=== PATIENT | male | born 1990 | race Caucasian/White ===

== ENCOUNTER 2022-01-18 02:57 | Emergency (ER) | payer MEDICAID, SELFPAY ==
[2022-01-18 03:05] VITALS: BP 106/67; PULSE 65; RESP 17; TEMP 36.5; O2SAT 97; BMI 28.1
[2022-01-18 04:07] LABS: Basophils Percent Auto 0.7 % (0-2); Eosinophils Percent Auto 0.9 % (0-4); Hematocrit 42.7 % (42.0-52.0); Hemoglobin 14.1 g/dl (14.0-18.0); Imm Gran Abs Auto 0.01 X10*3/uL (0.00-0.03); Imm Gran Pct Auto 0.2 % (0.0-0.4); Lymphocytes Absolute Auto 1.6 X10*3/uL (1.2-4.9); Lymphocytes Percent Auto 37.3 % (20-40); MANUAL DIFF FLAG NO; Mean Corpuscular Hemoglobin 31.1 pg (27.0-33.0); Mean Corpuscular Volume 94.1 fL (80.0-98.0); Mean Platelet Volume 8.2 fL (9.4-12.4); Monocytes Absolute Auto 0.4 X10*3/uL (0.1-1.2); Monocytes Percent Auto 8.2 % (2-11); Neutrophils Absolute Auto 2.3 x10*3/uL (2.0-8.3); Neutrophils Percent Auto 52.7 % (45-73); Platelet Count 275 X10*3/uL (160-400); Red Blood Count 4.54 X10*6/uL (4.60-5.80); Red Cell Distribution Width 15.5 % (11.0-16.0); White Blood Count 4.4 X10*3/uL (4.8-10.8)
[2022-01-18 04:10] LABS: Amphetamine Screen Urine Not Detected (Not Detect); Barbiturates, Urine Not Detected (Not Detect); Benzodiazepines Screen Urine POSITIVE (Not Detect); Cannabinoid Screen Urine POSITIVE (Not Detect); Cocaine Screen Urine Not Detected (Not Detect); Fentanyl, urine Not Detected (Not Detect); Opiate Screen Urine Not Detected (Not Detect); Phencyclidine Screen Urine Not Detected (Not Detect)
[2022-01-18 04:13] LABS: COVID-19 Test Negative (Negative)
[2022-01-18 04:26] LABS: Ethanol 337 mg/dL
[2022-01-18 04:29] LABS: Alanine Aminotransferase 42 U/L (0-40); Albumin Level 4.3 g/dL (3.5-5.0); Alkaline Phosphatase 55 U/L (39-117); Anion Gap 15 (12-20); Aspartate Amino Transferase 55 U/L (5-37); Bilirubin Direct 0.2 mg/dL (0.0-0.5); Bilirubin Total 0.4 mg/dL (0.0-1.0); Blood Urea Nitrogen 6 mg/dL (9-16); Calcium 8.8 mg/dL (8.4-10.2); Carbon Dioxide 26 mmol/L (22-29); Chloride 107 mmol/L (96-108); Creatinine Clr Calc Pharmacy 132.6; Estimated Glomerular Filt Rate > 60; Glucose Random 156 mg/dL (60-115); Potassium 3.2 mmol/L (3.3-5.1); Sodium 145 mmol/L (135-145)
--- NOTE | 2022-01-18 06:50 | PC.NURSE ---
Patient is in bed appears sleeping, no distress observed/reported, patient is not on any medication as reported by the patient, cryolite recovery operator will see the patient for detox help, behavior non concerning at this time, will continue to monitor
--- NOTE | 2022-01-18 07:16 | ED.ALCOHOL ---
HPI - Alcohol General Chief Complaint: ETOH/Substance Use Stated Complaint: ETOH SEEKING DETOX Time Seen by Provider: 01/18/22 07:16 Source: patient Mode of arrival: EMS Limitations: no limitations History of Present Illness HPI narrative: 31-year-old male who presents emergency department for evaluation alcohol use disorder and requesting alcohol detox. The patient was in a [employer] parking lot and he called the police and asked for help. Please contacted an ambulance the patient was then transported to the emergency department. The patient states that he has been binge drinking on alcohol. He states he drinks a 1-2 L bottle of Елена yuniel daily. States that he was drinking just prior to coming to the emergency department. He denied using any drugs. States that he has not been ill in any way except for his alcohol use. He denied fever, chills, rhinorrhea, sore throat, cough, chest pain, shortness of breath, abdominal pain, nausea, vomiting, diarrhea. Related Data Allergies Allergy/AdvReac Type Severity Reaction Status Date / Time Seasonal Allergies Allergy Runny Nose Verified 01/18/22 03:13 Review of Systems Review of Systems: Yes all other systems are reviewed and are negative [facility] Past Medical History [facility] Narrative: Past medical history: Depression, anxiety, PTSD. Past surgical history: None. Social history: Smokes 1/2 pack of cigarettes per day times 17 years. He drinks alcohol daily as discussed in the HPI he drinks 1-2 L of Елена yuniel per day. He denies drug use. Physical Exam ED Vital Signs: Vital Signs - 24 hr 01/18/22 03:05 01/18/22 07:22 Temperature 97.7 F Pulse Rate 65 74 Respiratory Rate 17 16 Blood Pressure 106/67 110/68 Pulse Oximetry 97 99 BMI result Body Mass Index 28.1 Const Other: Awake, alert, male patient, pleasant, cooperative, does not appear to be in distress HENMT Head: Yes normal to inspection, Yes normocephalic and Yes atraumatic Ears: external ears normal General nose exam: Normal external nose present Face and sinus: Yes normal facial exam Mouth: Normal oral and palatal mucosa present Throat: Yes posterior oropharynx normal Eyes General: appearance normal, both eyes and all related structures Pupils: Equal, round and reactive pupils present Neck Neck: Yes normal visual inspection, Yes no lymphadenopathy, Yes trachea midline and Yes supple Chest Chest palpation & inspection: normal inspection of the chest and normal palpation of entire chest wall Resp Effort & Inspection: normal respiratory effort and able to speak in complete sentences Auscultation: clear to auscultation bilaterally Cardio Rate: regular rate Rhythm: regular rhythm Heart sounds: S1 normal heart sound present, S2 normal heart sound present and no murmurs GI Inspection: Yes normal to inspection Palpation (GI): Soft to palpation, nontender and no guarding Auscultation: normal bowel sounds General: Yes no CVA tenderness Back/Spine/Pelvis Back: no CVA tenderness Skin General skin exam: no rashes or lesions noted Neuro Cranial nerves: Yes CN's II-XII intact bilaterally and Yes Equal, round and reactive pupils present Cognition (Neuro): normal cognition Motor exam (neuro): 5/5 motor strength present throughout Extrem General: Yes normal to inspection Psych Appearance: grossly normal Speech and movement: Normal speech and movement present Affect: normal affect Attitude: cooperative Thought process: Normal thought process present Thought content: Normal thought content present, suicidality and no homicidality Course Course Course Narrative: 31-year-old male with a history of alcohol use disorder who drinks 1-2 L of Елена yuniel daily who presents emergency department for evaluation for alcohol detox. The patient has not been ill in any way prior to coming to the emergency department. He denies being suicidal or homicidal. Vital signs were normal. Physical examination was unremarkable. Laboratory evaluation: Low WBC 4400, low potassium 3.2, low glucose 156, elevated AST and ALT 55 and 42. Elevated alcohol 337. Urine tox screen positive for benzodiazepines and marijuana. COVID-19 was negative. The patient's labs are consistent with acute alcohol intoxication and alcohol use disorder. The patient is medically cleared for evaluation for detox. A consult will be placed to the care team and to our student success coach to see how he can help this patient. The patient is voluntary, he is not suicidal or homicidal and he can leave at any time. 0723: Physician observation started at 0723. Patient placed in physician observation because the patient needed more time to metabolize his elevated alcohol level on become sober and to be evaluated by care team and student success coach for detox placement. At the time observation was started the patient's vitals were stable, patient is alert and oriented, cooperative Neuro: nonfocal, CV RRR, Lungs clear. MDM - Alcohol Lab Data Result diagrams: 04/05/22 04:02 01/18/22 04:02 Labs: Lab Results 01/18/22 01/18/22 01/18/22 Range/Units 03:41 03:41 04:02 WBC 4.4 L (4.8-10.8) X10*3/uL RBC 4.54 L (4.60-5.80) X10*6/uL Hgb 14.1 (14.0-18.0) g/dl Hct 42.7 (42.0-52.0) % MCV 94.1 (80.0-98.0) fL MCH 31.1 (27.0-33.0) pg MCHC 33.0 (31.0-36.0) g/dl RDW 15.5 (11.0-16.0) % Plt Count 275 (160-400) X10*3/uL MPV 8.2 L (9.4-12.4) fL Immature Gran % (Auto) 0.2 (0.0-0.4) % Neut % (Auto) 52.7 (45-73) % Lymph % (Auto) 37.3 (20-40) % Wetzel % (Auto) 8.2 (2-11) % Eos % (Auto) 0.9 (0-4) % Baso % (Auto) 0.7 (0-2) % Lymph # (Auto) 1.6 (1.2-4.9) X10*3/uL Wetzel # (Auto) 0.4 (0.1-1.2) X10*3/uL Eos # (Auto) 0.0 (0.0-0.4) X10*3/uL Baso # (Auto) 0.0 (0.0-0.2) X10*3/uL Abs Immat Gran (auto) 0.01 (0.00-0.03) X10*3/uL Absolute Neuts (auto) 2.3 (2.0-8.3) x10*3/uL Absolute Nucleated RBC 0.000 (0.0-0.012) X10*3/uL Nucleated RBC % (auto) 0.0 (0.0-0.2) /100WBC Sodium (135-145) mmol/L Potassium (3.3-5.1) mmol/L Chloride (96-108) mmol/L Carbon Dioxide (22-29) mmol/L Anion Gap (12-20) BUN (9-16) mg/dL Creatinine (0.5-1.4) mg/dL Estim Creat Clear Calc Estimated GFR Random Glucose (60-115) mg/dL Calcium (8.4-10.2) mg/dL Total Bilirubin (0.0-1.0) mg/dL Direct Bilirubin (0.0-0.5) mg/dL AST (5-37) U/L ALT (0-40) U/L Alkaline Phosphatase (39-117) U/L Total Protein (6.5-8.0) g/dL Albumin (3.5-5.0) g/dL Urine Opiates Screen Not Detected (Not Detect) Urine Fentanyl Screen Not Detected (Not Detect) Ur Barbiturates Screen Not Detected (Not Detect) Ur Phencyclidine Scrn Not Detected (Not Detect) Ur Amphetamines Screen Not Detected (Not Detect) U Benzodiazepines Scrn POSITIVE H (Not Detect) Urine Cocaine Screen Not Detected (Not Detect) U Marijuana (THC) Screen POSITIVE H (Not Detect) Ethyl Alcohol mg/dL COVID-19 (CHARU) Negative (Negative) COVID-19 Clin Com See Note 01/18/22 01/18/22 Range/Units 04:02 04:02 WBC (4.8-10.8) X10*3/uL RBC (4.60-5.80) X10*6/uL Hgb (14.0-18.0) g/dl Hct (42.0-52.0) % MCV (80.0-98.0) fL MCH (27.0-33.0) pg MCHC (31.0-36.0) g/dl RDW (11.0-16.0) % Plt Count (160-400) X10*3/uL MPV (9.4-12.4) fL Immature Gran % (Auto) (0.0-0.4) % Neut % (Auto) (45-73) % Lymph % (Auto) (20-40) % Wetzel % (Auto) (2-11) % Eos % (Auto) (0-4) % Baso % (Auto) (0-2) % Lymph # (Auto) (1.2-4.9) X10*3/uL Wetzel # (Auto) (0.1-1.2) X10*3/uL Eos # (Auto) (0.0-0.4) X10*3/uL Baso # (Auto) (0.0-0.2) X10*3/uL Abs Immat Gran (auto) (0.00-0.03) X10*3/uL Absolute Neuts (auto) (2.0-8.3) x10*3/uL Absolute Nucleated RBC (0.0-0.012) X10*3/uL Nucleated RBC % (auto) (0.0-0.2) /100WBC Sodium 145 (135-145) mmol/L Potassium 3.2 L (3.3-5.1) mmol/L Chloride 107 (96-108) mmol/L Carbon Dioxide 26 (22-29) mmol/L Anion Gap 15 (12-20) BUN 6 L (9-16) mg/dL Creatinine 0.81 (0.5-1.4) mg/dL Estim Creat Clear Calc 132.6 Estimated GFR > 60 Random Glucose 156 H (60-115) mg/dL Calcium 8.8 (8.4-10.2) mg/dL Total Bilirubin 0.4 (0.0-1.0) mg/dL Direct Bilirubin 0.2 (0.0-0.5) mg/dL AST 55 H (5-37) U/L ALT 42 H (0-40) U/L Alkaline Phosphatase 55 (39-117) U/L Total Protein 7.0 (6.5-8.0) g/dL Albumin 4.3 (3.5-5.0) g/dL Urine Opiates Screen (Not Detect) Urine Fentanyl Screen (Not Detect) Ur Barbiturates Screen (Not Detect) Ur Phencyclidine Scrn (Not Detect) Ur Amphetamines Screen (Not Detect) U Benzodiazepines Scrn (Not Detect) Urine Cocaine Screen (Not Detect) U Marijuana (THC) Screen (Not Detect) Ethyl Alcohol 337 H* mg/dL COVID-19 (CHARU) (Negative) COVID-19 Clin Com Discharge Plan Discharge Clinical Impression: Alcoholic intoxication, Alcohol use disorder, severe, dependence Patient Disposition: Still a Patient
[2022-01-18 07:22] VITALS: BP 110/68; PULSE 74; RESP 16; O2SAT 99
--- NOTE | 2022-01-18 07:23 | PC.NURSE ---
Care assumed at this time, pt in NAD, resp reg and even, skin wd, CIWA 0, VSS.
--- NOTE | 2022-01-18 09:00 | PC.NURSE ---
Message sent to Sophie from [facility] contacted regarding patient, plan for her or speech coach to come and speak with patient.
[2022-01-18 10:22] VITALS: BP 110/68; PULSE 71; RESP 18; TEMP 36.6; O2SAT 96
--- NOTE | 2022-01-18 12:16 | MHC.RECOVSUP ---
? Reason for consult:Recovery Support o Current location: Discharged o Identified substance use concern:ETOH - Withdrawal - Seeking ATS (detox) - Support ? Intervention: o ATS bed search started/completed/in process o Community resources provided o Harm reduction discussion ? Plan: o Referral to [facility] o Bed search in progress to o Patient to follow up with [facility] after discharge ? Additional information:Discussed harm reduction with patient, referred patient to the [facility] as we discussed MAT. Patient seeking detox. Patient accepted at [facility] with a 2:15pm appt. for a bed today.
== END 2022-01-18 11:58 | disposition home or self-care (01) ==
PROVIDERS: Emergency Provider Emergency Medicine Emergency Medical Services
DX: F10.220 Alcohol dependence with intoxication, uncomplicated (principal); Y90.8 Blood alcohol level of 240 mg/100 ml or more; Z20.822 Contact with and (suspected) exposure to COVID-19; F17.200 Nicotine dependence, unspecified, uncomplicated
CPT/HCPCS: 36415; 80048; 80076; 80307; 82077; 82550; 85025; 87635; 99284

== ENCOUNTER 2022-01-19 21:56 | Emergency (ER) | payer MEDICAID, SELFPAY ==
[2022-01-19 22:04] VITALS: BP 108/69; PULSE 52; RESP 16; TEMP 36.5; O2SAT 95
[2022-01-19 22:05] VITALS: BP 142/90; PULSE 86; O2SAT 96; BMI 25.8
--- NOTE | 2022-01-19 22:05 | PC.NURSE ---
pt agreeable to bloodwork, when plant and maintenance technician went to obtain labs, pt uncooperative stating no, not taking blood, this Rn explained he has a detox bed and they require labs to go. pt states no MD aware.
--- NOTE | 2022-01-19 22:22 | ED_ITS ---
HPI - Alcohol General Chief Complaint: ETOH/Substance Use Stated Complaint: ETOH, SEEKING DETOX Time Seen by Provider: 01/19/22 22:08 Source: patient Mode of arrival: EMS Limitations: other (ETOH intoxication, agitated at times) History of Present Illness HPI narrative: was seen yesterday had bed at [facility] - apparently did not go and drank instead no forthcoming with information laughing when I asked if he wants to go to detox MD complaint: alcohol intoxication and desires rehab Last drink: Hours (ago) Chronic alcohol use: Yes Previous visits for alcohol intoxication: Yes Recent trauma: No Associated symptoms: denies other symptoms Treatments prior to arrival: none Related Data Allergies Allergy/AdvReac Type Severity Reaction Status Date / Time Seasonal Allergies Allergy Runny Nose Verified 01/18/22 03:13 Review of Systems Review of Systems: ROS unable to be obtained due to ETOH intoxication and poor cooperation [facility] Past Medical History Attestation statement: The following information was validated with the patient. Medical History Alcohol abuse Social History Social History (Updated 01/19/22 @ 22:24 by Billie Skaggs DO) Alcohol intake: current Patient Tobacco Use Status: Current everyday Tobacco user Advance Directives: No Advance Directives Information Provided: No Physical Exam ED Vital Signs: Vital Signs - 24 hr 01/19/22 22:04 01/20/22 00:18 01/20/22 02:54 Temperature 97.7 F Pulse Rate 52 58 61 Respiratory Rate 16 14 18 Blood Pressure 108/69 104/68 98/71 Pulse Oximetry 95 96 93 BMI result Body Mass Index 25.8 Appearance: Sleeping Oriented X3. No acute distress. ETOH odor, slurred speech. No SI/HI. why you asking me so many questions? Eyes: Pupils equal, round and reactive to light. ENT: Pharynx normal. Atraumatic Neck: Normal inspection. Neck supple. CVS: Normal heart rate and rhythm. Pulses normal. Respiratory: No respiratory distress. Breath sounds normal. Abdomen: Soft and non-tender. Skin: Skin warm and dry. Normal skin color. Extremities: No lower extremity edema. Neuro: Oriented X 3. No motor deficit. No sensory deficit. Course Course Course Narrative: refusing labs I spoke to the patient again this morning about detox and attempting to figure out his plan he again was incredibly rude - why you asking me all these questions. this isn't a debate. I explained if his goal is to go to [facility] we generally like to get clearance labs and he is refusing. He states he will call on his own right now. He is quite unpleasant. He is clinically sober at this time. He was seen and evaluated 4/5 by the recovery/care team for his ETOH abuse and had a ride to detox but did not go. At this time he can make calls from home for detox MDM - Alcohol MDM Narrative Medical decision making narrative: 31 yo male with hx of ETOH abuse here with same complaint yesterday found detox bed - apparently did not make it there. Here intoxicated. At this time no signs of trauma. Will observe until clinically sober he denies SI/HI. Discharge Plan Discharge Clinical Impression: Alcoholic intoxication Qualifiers: Complication of substance-induced condition: uncomplicated Qualified Code(s): F10.920 - Alcohol use, unspecified with intoxication, uncomplicated Patient Disposition: Home, Self-Care Instructions: Abuse of Alcohol (ED) Additional Instructions: return to ED for any worsening symptoms or concerns please call [facility] and go to detox [phone] Discharge Date/Time: 01/20/22 06:17
--- NOTE | 2022-01-19 22:23 | PC.NURSE ---
pt sleeping, awoken by and this RN pt somnolent. able to open eyes and answer basic questions, denies HI/SI states he was drinking parul earlier today and agreeable to go to detox. pt agreeable for bloodwork in order to go to [facility]
--- NOTE | 2022-01-19 22:45 | PC.NURSE ---
pt standing in doorway, unsteadily. this RN and supervisor elementary education approached pt tpo ensure safety, pt became agitated, this rn asked pt what he wanted, pt stated detox, we discussed the need for labs, pt stated no. pt stated dont touch me, ill touch you if you touch me. pt redirected back into bed, aware
[2022-01-20 00:18] VITALS: BP 104/68; PULSE 58; RESP 14; O2SAT 96
--- NOTE | 2022-01-20 01:01 | PC.NURSE ---
Tried to do the blood work again, but pt refused. waiter/waitress captain aware. updated pt vitals and pt went back to sleep.
[2022-01-20 02:54] VITALS: BP 98/71; PULSE 61; RESP 18; O2SAT 93
== END 2022-01-20 06:17 | disposition home or self-care (01) ==
PROVIDERS: Emergency Provider Emergency Medicine
DX: F10.129 Alcohol abuse with intoxication, unspecified (principal); Y90.9 Presence of alcohol in blood, level not specified; Z71.41 Alcohol abuse counseling and surveillance of alcoholic
CPT/HCPCS: 99284